=== PATIENT | male | born 1995 | race Hispanic/Latino ===

== ENCOUNTER 2017-05-09 21:49 | Emergency (ER) | payer MEDICAID ==
[~2017-05-09] VITALS: Ht 170.2 cm; Wt 59.2 kg
[~2017-05-09 21:49] MED LIST: AMOXICILLIN500 MG PO; BACTRIM DS1 TAB PO; CEPHALEXIN500 MG PO; ZOFRAN ODT4 MG PO
[2017-05-09] MEDS ORDERED: AUGMENTIN875TAB PO (22:54)
[2017-05-09 23:33] VITALS: BP 116/63
== END 2017-05-09 23:33 | disposition home or self-care (01) | DRG 605 ==
LOC: ED 21:49
DX: S30.871A Other superficial bite of abdominal wall, initial encounter (principal); S70.311A Abrasion, right thigh, initial encounter; W54.0XXA Bitten by dog, initial encounter; Y93.01 Activity, walking, marching and hiking; Y92.414 Local residential or business street as the place of occurrence of the external cause